=== PATIENT | female | born 1975 | race Caucasian/White ===

== ENCOUNTER 2018-10-07 22:01 | Observation (INO) ==
--- NOTE | 2018-10-07 22:21 | Emergency Department Note ---
Disposition Clinical Impression: Acute electrocardiogram changes Chest pain Qualifiers: Chest pain type: unspecified Qualified Code(s): R07.9 - Chest pain, unspecified Disposition: Admitted As Inpatient Condition: Fair Referrals: Jesenia Freitas CNP [Primary Care Provider] - Forms: ED Satisfaction Letter, Work/School Release Time of Disposition: 23:42 SOB HPI - General Chief Complaint: ED Abdominal Pain Stated Complaint: back pain Time Seen by Provider: 10/07/18 22:07 Source: patient Limitations: no limitations Nursing Notes Reviewed: Yes Vital Signs Reviewed: Yes - History of Present Illness 43-year-old female presents emergency department for shortness of breath and discomfort in her chest. Patient states that she took Norflex muscle relaxant for the first time tonight related to her low back pain developed onset of feelings of shortness of breath and tightness to her chest. Patient states that recently she has been having tightness in her chest has seen Dr. Michelle cardiology for evaluation of abnormal EKG. She is currently being set up for an outpatient stress test. Patient states states that pain was also located to her right flank and right lower quadrant at that same time. She has had no associated nausea vomiting. She states no fever or chills. Patient's urinalys is morning did not reveal any evidence of infection or hematuria. Her CT scan of the abdomen also showed no acute abnormalities - Related Data Home Medications Medication Instructions Recorded Confirmed Levothyroxine [Synthroid] 88 mcg PO DAILY 11/07/16 10/07/18 Omeprazole [PriLOSEC] 40 mg PO DAILY 11/20/17 10/07/18 Previous Rx's Medication Instructions Recorded Acetaminophen w/Cod 300-30 mg 1 each PO Q4HR 3 Days #14 tablet 10/07/18 [Tylenol w/Codeine #3] Orphenadrine [Norflex] 100 mg PO Q12HR #20 tablet.er 10/07/18 Allergies Allergy/AdvReac Type Severity Reaction Status Date / Time sulfamethoxazole Allergy Itching Verified 10/07/18 22:08 [From Bactrim] trimethoprim [From Bactrim] Allergy Itching Verified 10/07/18 22:08 naproxen AdvReac Itching Verified 10/07/18 22:08 All systems ED: reviewed and negative except as stated. Review of Systems: As Per HPI Past Medical History - Past Medical History Attestation: Yes The following information was validated with the patient. 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 HENT: Head: Normocephalic and atraumatic. Right Ear: External ear normal. Left Ear: External ear normal. Nose: Nose normal. Mouth/Throat: Oropharynx is clear and mucous membranes show [good hydration.] Eyes: Conjunctivae and EOM are normal. Pupils are equal, round, and reactive to light. Right eye exhibits [no] discharge. Left eye exhibits [no] discharge. Neck: Trachea is midline, normal range of motion and [phonation normal]. Neck supple. Cardiovascular: [Regular rhythm], S1 normal, S2 normal, normal heart sounds and intact distal pulses. Exam reveals no gallop and no friction rub. No murmur heard. [Capillary refill is brisk.] [Peripheral pulses are 2+] Pulmonary/Chest: Effort [normal] No stridor. [No] tachypnea. [No] respiratory distress. There are [no] decreased breath sounds. [There no wheezes, no rhonchi , or rales.] Abdominal: Soft. [Bowel sounds are normal]. There exhibits [no] distension and [no] mass. There is no hepatosplenomegaly. There is [no tenderness], [no] CVA tenderness. There is [no rigidity, no rebound, no guarding]. She continues to have pain located in her right lower lumbar area and right flank. There is no significant CVA tenderness Musculoskeletal: Normal range of motion of uninvolved extremities. There exhibits [no edema]. [ ] Neurological: Patient is alert. Patient displays no atrophy and no tremor. Moves all 4 extremities equally without gross deficit. No cranial nerve deficit and exhibits normal muscle tone. Coordination normal grossly. Skin: Skin is warm and dry. No erythema. No rash noted. Psychiatric: Patient is anxious and tearful Course Course Narrative: Discussed diagnosis and further treatment plans with patient . Questions addressed. Specific discharge instructions, Physician follow up with rec ommendations on timing of that follow up, and reasons to return to the emergency department explained. - Reevaluation(s) Reevaluation #1: Patient despite reassurance upon presentation she continues to have discomfort in her chest and epigastric area. She has EKG T-wave changes in her anterior leads V1 through V3 which may represent underlying ischemia. Patient will need more urgent evaluation for cardiac ischemia i.e. stress testing - Consultations Consultation #1: She was discussed with Dr. Saba tangible personal property appraiser who will admit her overnight for further evaluation with cardiology consultation and possible stress testing. Vital Signs Temperature 97.8 F 10/07/18 22:06 Pulse Rate 77 10/07/18 22:06 Respiratory Rate 20 10/07/18 22:06 Blood Pressure 132/83 10/07/18 22:06 O2 Sat by Pulse Oximetry 95 10/07/18 22:06 Temperature 97.8 F 10/07/18 22:06 Pulse Rate 68 10/07/18 23:00 Respiratory Rate 20 10/07/18 22:06 Blood Pressure 113/74 10/07/18 23:00 O2 Sat by Pulse Oximetry 95 10/07/18 22:06 Oxygen Delivery Oxygen Delivery Room Air Shortness of Breath/Dyspnea - MDM Narrative Medical decision making narrative: Differential diagnosis upon presentation would include myocardial ischemia, myocardial infarction, acute coronary syndrome, pulmonary embolism, thoracic aortic dissection, pneumothorax, pneumonia, hemothorax, esophageal rupture. - Lab Data Lab results reviewed: Yes I reviewed the patient's lab results. Result diagrams: 10/07/18 22:55 10/07/18 22:55 Lab Results 10/07/18 10/07/18 10/07/18 Range/Units 22:55 22:55 22:55 WBC 8.7 (4.3-11.1) K/mcL RBC 4.28 (3.82-4.97) M/mcL Hgb 13.5 (11.5-15.4) g/dL Hct 39.9 (35.3-44.9) % MCV 93.2 (83.0-100.0) fL MCH 31.5 (28.0-33.3) pg MCHC 33.8 (31.6-35.5) g/dL RDW 12.7 (11.5-14.5) % Plt Count 234 (140-400) K/mcL MPV 9.6 (9.4-12.4) fL Immature Gran % 0.3 (0-4) % Seg Neutrophils % 51.3 % Lymphocytes % 40.1 % Monocytes % 5.4 % Eosinophils % 2.2 % Basophils % 0.7 % Neutrophils # 4.4 (1.6-8.9) K/mcL Lymphocytes # 3.5 (0.6-4.6) K/mcL Monocytes # 0.5 (0.0-1.3) K/mcL Eosinophils # 0.2 (0.0-0.6) K/mcL Basophils # 0.1 (0.0-0.2) K/mcL PT 10.2 (9.4-12.1) Seconds INR 0.9 APTT 21.9 L (26.0-36.0) Seconds Sodium (136-145) mEq/L Potassium (3.5-5.1) mEq/L Chloride (98-107) mEq/L Carbon Dioxide (23-29) mEq/L BUN (6-20) mg/dL Creatinine (0.60-1.20) mg/dL Est GFR ( Amer) (> 60) Est GFR (Non-Af Amer) (> 60) BUN/Creatinine Ratio (6-26) Glucose (70-105) mg/dL Calculated Osmolality (280-300) Calcium (8.6-10.3) mg/dL Total Bilirubin 0.4 (0.3-1.0) mg/dL Direct Bilirubin 0.1 (0.0-0.2) mg/dL Indirect Bilirubin 0.3 (0.0-1.2) mg/dL AST 117 H (13-39) Units/L ALT 110 H (7-52) Units/L Alkaline Phosphatase 73 (34-104) Units/L Troponin I (< 0.04) ng/mL Serum Total Protein 6.6 (6.4-8.9) g/dL Albumin 3.6 (3.5-5.7) g/dL Globulin 3.0 (2.4-3.5) g/dL Albumin/Globulin Ratio 1.2 (1.1-2.2) 10/07/18 Range/Units 22:55 WBC (4.3-11.1) K/mcL RBC (3.82-4.97) M/mcL Hgb (11.5-15.4) g/dL Hct (35.3-44.9) % MCV (83.0-100.0) fL MCH (28.0-33.3) pg MCHC (31.6-35.5) g/dL RDW (11.5-14.5) % Plt Count (140-400) K/mcL MPV (9.4-12.4) fL Immature Gran % (0-4) % Seg Neutrophils % % Lymphocytes % % Monocytes % % Eosinophils % % Basophils % % Neutrophils # (1.6-8.9) K/mcL Lymphocytes # (0.6-4.6) K/mcL Monocytes # (0.0-1.3) K/mcL Eosinophils # (0.0-0.6) K/mcL Basophils # (0.0-0.2) K/mcL PT (9.4-12.1) Seconds INR APTT (26.0-36.0) Seconds Sodium 128 L (136-145) mEq/L Potassium 3.5 (3.5-5.1) mEq/L Chloride 99 (98-107) mEq/L Carbon Dioxide 22 L (23-29) mEq/L BUN 10 (6-20) mg/dL Creatinine 0.77 (0.60-1.20) mg/dL Est GFR ( Amer) > 60 (> 60) Est GFR (Non-Af Amer) > 60 (> 60) BUN/Creatinine Ratio 13 (6-26) Glucose 92 (70-105) mg/dL Calculated Osmolality 265 L (280-300) Calcium 8.3 L (8.6-10.3) mg/dL Total Bilirubin (0.3-1.0) mg/dL Direct Bilirubin (0.0-0.2) mg/dL Indirect Bilirubin (0.0-1.2) mg/dL AST (13-39) Units/L ALT (7-52) Units/L Alkaline Phosphatase (34-104) Units/L Troponin I < 0.03 (< 0.04) ng/mL Serum Total Protein (6.4-8.9) g/dL Albumin (3.5-5.7) g/dL Globulin (2.4-3.5) g/dL Albumin/Globulin Ratio (1.1-2.2) - Radiology Data Radiology results reviewed: Yes I reviewed the patient's radiology results. XR/XR chest 2V IMPRESSION: No acute process - EKG Data EKG attestation: Yes I reviewed and interpreted this EKG. EKG shows normal: Reports: sinus rhythm, axis, intervals Rate: Reports: normal Interpretation: Reports: nonspecific ST-T wave changes (Patient has new T-wave inversion in leads V1 through V3)
[2018-10-07] MEDS ORDERED: Nitroglycerin 1 INCH/GM PACKET TP ONE (22:38)
[2018-10-07] MEDS ORDERED: Morphine Sulfate 2 MG/ML SYRINGE IVP ONE (22:38)
[2018-10-07] MEDS: Aspirin 81 MG TAB.CHEW PO ONE ×2 (22:51→23:01)
[2018-10-07] MEDS ORDERED: Aspirin 81 MG TAB.CHEW ONE ×2 (22:54→23:38)
[2018-10-07 23:02] LABS: INR 0.9; Prothrombin Time 10.2 Seconds (9.4-12.1)
[2018-10-07 23:04] LABS: Basophils # 0.1 K/mcL (0.0-0.2); Basophils % 0.7 %; Eosinophils # 0.2 K/mcL (0.0-0.6); Eosinophils % 2.2 %; Hematocrit 39.9 % (35.3-44.9); Hemoglobin 13.5 g/dL (11.5-15.4); Immature Granulocytes % 0.3 % (0-4); Lymphocytes # 3.5 K/mcL (0.6-4.6); Lymphocytes % 40.1 %; Mean Corpuscular HGB Conc 33.8 g/dL (31.6-35.5); Mean Corpuscular Hemoglobin 31.5 pg (28.0-33.3); Mean Corpuscular Volume 93.2 fL (83.0-100.0); Mean Platelet Volume 9.6 fL (9.4-12.4); Monocytes # 0.5 K/mcL (0.0-1.3); Monocytes % 5.4 %; Neutrophils # 4.4 K/mcL (1.6-8.9); Platelet Count 234 K/mcL (140-400); Red Blood Count 4.28 M/mcL (3.82-4.97); Red Cell Distribution Width 12.7 % (11.5-14.5); Segmented Neutrophils % 51.3 %; White Blood Count 8.7 K/mcL (4.3-11.1)
[2018-10-07 23:05] LABS: Activated Partial Thrombo Time 21.9 Seconds (26.0-36.0)
[2018-10-07 23:13] LABS: BUN/Creatinine Ratio 13 (6-26); Blood Urea Nitrogen 10 mg/dL (6-20); Calcium 8.3 mg/dL (8.6-10.3); Carbon Dioxide 22 mEq/L (23-29); Chloride 99 mEq/L (98-107); Glucose 92 mg/dL (70-105); Osmolality,Calculated 265 (280-300); Potassium 3.5 mEq/L (3.5-5.1); Sodium 128 mEq/L (136-145); Troponin I < 0.03 ng/mL (< 0.04); eGFR For African Americans > 60 (> 60); eGFR For Non-African Americans > 60 (> 60)
[2018-10-07 23:14] LABS: Albumin 3.6 g/dL (3.5-5.7); Albumin/Globulin Ratio 1.2 (1.1-2.2); Bilirubin,Direct 0.1 mg/dL (0.0-0.2); Bilirubin,Indirect 0.3 mg/dL (0.0-1.2); Bilirubin,Total 0.4 mg/dL (0.3-1.0); Total Protein 6.6 g/dL (6.4-8.9)
[2018-10-07] MEDS ORDERED: Ondansetron 4 MG/2 ML VIAL IVP PRN (23:38)
[2018-10-07] MEDS ORDERED: Naloxone 0.4 MG/ML INJ IVP PRN (23:38)
[2018-10-07] MEDS ORDERED: Morphine Sulfate 2 MG/ML SYRINGE IVP PRN (23:39)
[2018-10-08] MEDS: Nitroglycerin 1 INCH/GM PACKET TP SCH ×3 (01:00→11:45)
[2018-10-08] MEDS ORDERED: *HR* Enoxaparin 40 MG/0.4 ML SYRINGE SQ SCH (07:00)
--- NOTE | 2018-10-08 08:59 | Electrocardiograph Report ---
[place] [id number] Test Date: 2018-10-08 Pat Name: Neisha Arcos Department: 2001 Room: 114 Gender: F Intern Retail: [employer] : 1975 Requested By: Oseas Phillip Order Number: [id number] Reading MD: Tran Deleon Measurements Intervals [place] Rate: 67 P: 32 OR: 151 QRS: 17 QRSD: 97 T: 31 QT: 403 QTc: 418 Interpretive Statements SINUS RHYTHM NONSPECIFIC T-WAVE ABNORMALITY Electronically Signed On 10-08-2018 8:57:54 EDT by Tran Deleon
--- NOTE | 2018-10-08 09:04 | Electrocardiograph Report ---
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
--- NOTE | 2018-10-08 10:10 | Internal Med History&Physical ---
Date of Encounter: 10/08/18 Time of Encounter: 10:05 Assessment and Plan (1) Chest pain Current visit: Yes Status: Acute Patient presented to emergency department with complaints of chest pain, which resolved overnight after receiving a dose of nitroglycerin. Patient denies any return of pain. States that she experienced dyspnea during her pain. Patient had shown EKG changes while in the emergency department. Patient is having a stress test arranged for further evaluation. Further recommendations will be provided pending stress test results. We will obtain a echocardiogram also. We will continue with current medications. Qualifiers: Chest pain type: unspecified Qualified Code(s): R07.9 - Chest pain, unspecified (2) Lumbar back pain Current visit: No Status: Acute Patient states that her back pain has been chronic currently denies any discomforts or radicular symptoms. We will continue with current medications Internal Medicine - H&P: HPI Chief complaint: chest pain Admitted From: Emergency Dept Plans for Post Hospital Care: Home History of present illness: Ms. Arcos is a 43 year old female, who presented to the emergency department for shortness of breath and discomfort in her chest. Patient states that she took Norflex muscle relaxant for the first time tonight related to her low back pain developed onset of feelings of shortness of breath and tightness to her chest. Patient states that recently she has been having tightness in her chest has seen Dr. Michelle cardiology for evaluation of abnormal EKG. She was currently set up for an outpatient stress test, but it wasn't scheduled until sometime next month. Patient states states that pain was also located to her right flank and right lower quadrant at that same time. She has had no associated nausea vomiting. She states no fever or chills. Patient's urinalysis morning did not reveal any evidence of infection or hematuria. Her CT scan of the abdomen also showed no acute abnormalities Patient states that her pain has resolved overnight after receiving nitroglycerin. She states no return of pain. Denies any dyspnea or palpitations. Past Med Surg Social Fam HX - Past Medical History Medical history: COPD, GERD, hepatitis, thyroid disease, syncope Additional medical history: hld/fatty liver test pending Psychiatric history: no psych history - Past Surgical History Surgical History: cholecystectomy Additional surgical history: tubal, tonsilectomy - Social History Smoking Status: Current every day smoker Packs per day: 1 1/2 Smokeless Tobacco Status: No Alcohol use: occasionally Drug use: none - Family History Mother History Unknown: Yes Father Hx Family Endocrine Disorder: Yes (thyroid disease) Internal Medicine - H&P: Meds Levothyroxine [Synthroid] 125 mcg PO DAILY 11/07/16 [History] Omeprazole [PriLOSEC] 40 mg PO DAILY 11/20/17 [History] Acetaminophen w/Cod 300-30 mg [Tylenol w/Codeine #3] 1 each PO Q4HR 3 Days #14 tablet 10/07/18 [Rx] Orphenadrine [Norflex] 100 mg PO Q12HR #20 tablet.er 10/07/18 [Rx] Valsartan/Hydrochlorothiazide [Diovan Hct 160-12.5 mg Tab] 1 each PO DAILY 10/08/18 [History] Allergy/AdvReac Type Severity Reaction Status Date / Time sulfamethoxazole Allergy Itching Verified 10/07/18 22:08 [From Bactrim] trimethoprim [From Bactrim] Allergy Itching Verified 10/07/18 22:08 naproxen AdvReac Gastrointestinal Verified 10/08/18 01:24 Upset All Systems PM: A 10-system review of systems was performed and is negative for pertinent findings except as documented above in the HPI. - Constitutional Constitutional: as per HPI, no chills, no fever(s), no night sweats - EENT Eyes: as per HPI, no change in vision, no discharge, no pain, no photophobia Ears: as per HPI, no ear discharge, no ear pain, no tinnitus Nose, mouth and throat: as per HPI, no dysphagia, no nasal discharge, no neck pain, no sore throat - Breasts Breasts: as per HPI - Cardiovascular Cardiovascular ROS IM: as per HPI, no chest pain, no diaphoresis, no dyspnea, no lightheadedness, no palpitations, no syncope - Respiratory Respiratory: as per HPI, no cough, no dyspnea, no wheezing, no excessive phlegm production - Gastrointestinal Gastrointestinal: as per HPI, no abdominal pain, no diarrhea, no hematemesis, no hematochezia, no melena, no nausea, no vomiting - Genitourinary Genitourinary: as per HPI, no change in urinary stream, no dysuria, no flank pain, no hematuria - Musculoskeletal Musculoskeletal ROS IM: as per HPI, no numbness, no tingling - Integumentary Integumentary IM: as per HPI, no rash, no unusual bruising - Neurological Neurological ROS: as per HPI, no confusion, no convulsions, no focal weakness, no numbness, no tingling, no tremor(s) - Hematologic/Lymphatic Hematologic/Lymphatic: no easy bruising - Constitutional Vitals: Temp Pulse Resp BP Pulse Ox 98.1 F 71 18 116/77 98 10/08/18 08:00 10/08/18 08:00 10/08/18 08:00 10/08/18 08:00 10/08/18 08:00 General appearance: Present: A&O X 3, pleasant - Head Head exam: Present: atraumatic, normocephalic - Eye Eye exam: Present: PERRL, conjuntiva pink, sclera anicteric Pupils: Present: PERRL - Neck Neck exam general surgery: Present: supple, trachea midline. Absent: lymphadenopathy - Respiratory Respiratory exam: Present: CTAB. Absent: accessory muscle use, rales, rhonchi, wheezes - Cardiovascular Cardiovascular exam: Present: RRR, +S1, +S2. Absent: diastolic murmur, gallop, rubs, systolic murmur - GI/Abdominal GI/Abdominal exam: Present: normal bowel sounds, soft, no peritoneal signs. Absent: distended, tenderness - Extremities Exam Extremities exam: Present: warm, radial pulses palpable and symmetrical. Absent: calf tenderness, cyanotic, pedal edema - Neurological Exam Neurological exam: Present: CN II-XII intact, oriented X3, no focal deficits. Absent: pronater drift, facial droop, speech deficit - Skin Skin exam: Present: dry, intact Internal Med - H&P Results - Labs CBC & Chem 7: 10/07/18 22:55 10/07/18 22:55 Labs: Short CBC 10/07/18 Range/Units 22:55 WBC 8.7 (4.3-11.1) K/mcL Hgb 13.5 (11.5-15.4) g/dL Hct 39.9 (35.3-44.9) % Plt Count 234 (140-400) K/mcL Neutrophils # 4.4 (1.6-8.9) K/mcL BMP 10/07/18 22:55 Sodium 128 L Potassium 3.5 Chloride 99 Carbon Dioxide 22 L BUN 10 Creatinine 0.77 Glucose 92 Calcium 8.3 L Cardiac Enzymes 10/07/18 10/08/18 Range/Units 22:55 04:50 Troponin I < 0.03 < 0.03 (< 0.04) ng/mL Liver Function 10/07/18 Range/Units 22:55 Total Bilirubin 0.4 (0.3-1.0) mg/dL Direct Bilirubin 0.1 (0.0-0.2) mg/dL AST 117 H (13-39) Units/L ALT 110 H (7-52) Units/L Alkaline Phosphatase 73 (34-104) Units/L Albumin 3.6 (3.5-5.7) g/dL - Impressions ITS Impressions Chest X-Ray 10/07/18 22:18 IMPRESSION: No acute process. D/ / Sonny Ash MD / Sonny Ash MD Interpreting Provider: Sonny Ash MD
[2018-10-08] MEDS ORDERED: *HR* Acetaminophen w/Cod 300-30 mg 1 TAB TABLET PO PRN (10:37)
[2018-10-08] MEDS ORDERED: Nicotine 21 MG PATCH.TD24 TD SCH (10:45)
[2018-10-08 16:29] VITALS: BP 93/54
--- NOTE | 2018-10-09 11:26 | Discharge Summary ---
- NOTES TO OUTPATIENT PROVIDER Notes to Outpatient Provider: Second phase of myocardial scan to be completed daily after discharge. Date of Encounter: 10/08/18 Time of Encounter: 17:00 - Discharge Diagnosis (1) Acute electrocardiogram changes Priority: Secondary Status: Acute Comments: Suspect he will like her global ischemia based on clinical assessment but myocardial scan in progress. Patient has been discharged with instructions to follow-up should there be any additional pain and to complete scan, tomorrow morning. (2) Sleep apnea syndrome Priority: Secondary Status: Acute Comments: Presumed by oxygenation at night. Dr. Michelle has ordered polysomnography. Qualifiers: Sleep apnea type: unspecified type Qualified Code(s): G47.30 - Sleep apnea, unspecified (3) Chest pain Priority: Primary Status: Acute Comments: See above. Qualifiers: Chest pain type: unspecified Qualified Code(s): R07.9 - Chest pain, unspecified (4) Lumbar back pain Priority: Secondary Status: Acute Comments: Chronic and ongoing. Defer management to primary care physician. (5) Tobacco abuse Priority: Secondary Status: Acute Comments: Patient is discharged with nicotine patch and encouraged to stop smoking. Hospital course: Ms. Arcos is a 43 year old female with atypical anterior sternal chest pain. She had abnormal EKG but troponins were negative, completed an exercise treadmill which failed to show ischemia in began a myocardial scan. She was found to have an abnormal nocturnal saturation and home oxygen was ordered by Dr. Michelle, her flooring helper, until such time she can go through formal polysomnography. Echocardiogram showed good ejection fraction and no abnormalities. She is discharged pending follow-up with Dr. Michelle and primary care as planned. - Time Spent with Patient Total time spent providing and/or coordinating discharge services: - Discharge Medications Prescriptions: No Action Levothyroxine [Synthroid] 125 mcg PO DAILY Omeprazole [PriLOSEC] 40 mg PO DAILY Orphenadrine [Norflex] 100 mg PO Q12HR #20 tablet.er Acetaminophen w/Cod 300-30 mg [Tylenol w/Codeine #3] 1 each PO Q4HR 3 Days #14 tablet Valsartan/Hydrochlorothiazide [Diovan Hct 160-12.5 mg Tab] 1 each PO DAILY Home Medications: Levothyroxine [Synthroid] 125 mcg PO DAILY 11/07/16 [History] Omeprazole [PriLOSEC] 40 mg PO DAILY 11/20/17 [History] Acetaminophen w/Cod 300-30 mg [Tylenol w/Codeine #3] 1 each PO Q4HR 3 Days #14 tablet 10/07/18 [Rx] Orphenadrine [Norflex] 100 mg PO Q12HR #20 tablet.er 10/07/18 [Rx] Valsartan/Hydrochlorothiazide [Diovan Hct 160-12.5 mg Tab] 1 each PO DAILY 10/08/18 [History] Allergies/Adverse Reactions: Allergy/AdvReac Type Severity Reaction Status Date / Time sulfamethoxazole Allergy Itching Verified 10/07/18 22:08 [From Bactrim] trimethoprim [From Bactrim] Allergy Itching Verified 10/07/18 22:08 naproxen AdvReac Gastrointestinal Verified 10/08/18 01:24 Upset Date of admission: 10/07/18 23:50 Primary care physician: Jesenia Freitas, PARAFFINER Discharging clinician: Roberto Saba Anticipated date of discharge: 10/08/18 - Constitutional Vitals: Temp Pulse Resp BP Pulse Ox 98.0 F 75 18 93/54 97 10/08/18 16:00 10/08/18 16:00 10/08/18 16:00 10/08/18 16:00 10/08/18 16:00 Exam: See H&P earlier today. - Patient Status Disposition: Home, Self-Care Condition: Fair Functional capacity at discharge: independent ambulation Overall status at discharge: patient is back to baseline - Discharge Instructions Forms: Work/School Release
== END 2018-10-08 18:42 | disposition home or self-care (01) ==
LOC: INPGRE 22:01 → EMEROOGRE 22:01 → INPGRE 10-08 00:14

== ENCOUNTER 2021-07-22 11:23 | Observation (INO) ==
[2021-07-22] MEDS ORDERED: cloNIDine HCL 0.1 MG TABLET PO ONE ×2 (11:56→13:11)
[2021-07-22 12:08] LABS: Basophils % 1.2 %; Eosinophils # 0.1 K/mcL (0.0-0.6); Eosinophils % 1.8 %; Hematocrit 37.2 % (35.3-44.9); Hemoglobin 12.9 g/dL (11.5-15.4); Immature Granulocytes % 0.3 % (0-4); Mean Corpuscular HGB Conc 34.7 g/dL (31.6-35.5); Mean Corpuscular Hemoglobin 32.5 pg (28.0-33.3); Mean Corpuscular Volume 93.7 fL (83.0-100.0); Mean Platelet Volume 9.5 fL (9.4-12.4); Monocytes # 0.2 K/mcL (0.0-1.3); Monocytes % 6.3 %; Neutrophils # 2.1 K/mcL (1.6-8.9); Platelet Count 122 K/mcL (140-400); Red Blood Count 3.97 M/mcL (3.82-4.97); Red Cell Distribution Width 14.2 % (11.5-14.5); Segmented Neutrophils % 61.4 %; White Blood Count 3.4 K/mcL (4.3-11.1)
[2021-07-22 12:16] LABS: INR 1.2; Prothrombin Time 13.6 Seconds (9.4-12.1)
[2021-07-22 12:24] LABS: BUN/Creatinine Ratio 12 (6-26); Blood Urea Nitrogen 10 mg/dL (6-20); Calcium 9.7 mg/dL (8.6-10.3); Carbon Dioxide 25 mEq/L (23-29); Chloride 95 mEq/L (98-107); Glucose 115 mg/dL (70-105); Osmolality,Calculated 270 (280-300); Potassium 3.8 mEq/L (3.5-5.1); Sodium 130 mEq/L (136-145); eGFR For African Americans > 60 (> 60); eGFR For Non-African Americans > 60 (> 60)
[2021-07-22 12:25] LABS: Troponin I < 0.03 ng/mL (< 0.04)
[2021-07-22] MEDS ORDERED: Naloxone 0.4 MG/ML INJ IVP PRN (14:04)
[2021-07-22] MEDS: Nicotine 21 MG PATCH.TD24 TD SCH (14:52)
[2021-07-22] MEDS ORDERED: Melatonin 3 MG TABLET PO PRN (20:25)
[2021-07-22] MEDS: Acetaminophen 325 MG TABLET PO PRN (21:05)
[2021-07-23 05:25] LABS: Basophils % 0.8 %; Eosinophils # 0.1 K/mcL (0.0-0.6); Eosinophils % 2.1 %; Hematocrit 32.8 % (35.3-44.9); Hemoglobin 11.1 g/dL (11.5-15.4); Immature Granulocytes % 0.4 % (0-4); Lymphocytes # 0.9 K/mcL (0.6-4.6); Mean Corpuscular HGB Conc 33.8 g/dL (31.6-35.5); Mean Corpuscular Hemoglobin 32.6 pg (28.0-33.3); Mean Corpuscular Volume 96.2 fL (83.0-100.0); Mean Platelet Volume 9.8 fL (9.4-12.4); Monocytes # 0.2 K/mcL (0.0-1.3); Monocytes % 7.2 %; Neutrophils # 1.3 K/mcL (1.6-8.9); Red Blood Count 3.41 M/mcL (3.82-4.97); Red Cell Distribution Width 14.2 % (11.5-14.5); Segmented Neutrophils % 53.5 %; White Blood Count 2.4 K/mcL (4.3-11.1)
[2021-07-23 05:34] LABS: Platelet Count 85 K/mcL (140-400)
[2021-07-23 05:41] LABS: BUN/Creatinine Ratio 16 (6-26); Blood Urea Nitrogen 13 mg/dL (6-20); Calcium 9.2 mg/dL (8.6-10.3); Carbon Dioxide 24 mEq/L (23-29); Chloride 98 mEq/L (98-107); Glucose 107 mg/dL (70-105); Osmolality,Calculated 273 (280-300); Potassium 3.6 mEq/L (3.5-5.1); Sodium 131 mEq/L (136-145); eGFR For African Americans > 60 (> 60); eGFR For Non-African Americans > 60 (> 60)
[2021-07-23] MEDS: Acetaminophen 325 MG TABLET PO PRN (05:46)
[2021-07-23] MEDS ORDERED: *HR* Enoxaparin 40 MG/0.4 ML SYRINGE SQ SCH (06:00)
[2021-07-23 06:20] LABS: Thyroid Stimulating Hormone 37.222 mcIU/mL (0.340-5.600)
[2021-07-23 07:10] VITALS: RESP 16; O2SAT 97
[2021-07-23] MEDS: Nicotine 21 MG PATCH.TD24 TD SCH (08:16)
[2021-07-23] MEDS ORDERED: lisinopriL 5 MG TABLET PO SCH (09:00)
[2021-07-23 11:47] VITALS: BP 157/97; PULSE 64; TEMP 97.8
== END 2021-07-23 12:46 | disposition home or self-care (01) ==
LOC: EMEROOGRE 11:23 → INPGRE 11:23
PROVIDERS: ADMIT Internal Medicine; ATTEND Internal Medicine